=== PATIENT | male | born 1960 | race Caucasian/White ===

== ENCOUNTER → 2020-09-15 16:36 | Outpatient (BNVA) | payer OTHER, SELFPAY | PROVIDERS: Family Provider Nurse Practitioner Family; Visit Provider Nurse Practitioner Family | DX: J06.9 Acute upper respiratory infection, unspecified (principal); Z20.822 Contact with and (suspected) exposure to COVID-19 | CPT/HCPCS: 87635 ==

== ENCOUNTER 2022-07-08 10:57 | Emergency (ER) | payer BC, SELFPAY ==
--- NOTE | 2022-07-08 11:00 | ED_ITS ---
HPI - Skin/Abscess/Foreign Bdy General: Chief complaint: Skin/Abscess/Foreign Body Stated complaint: cyst on back Time Seen by Provider: 07/08/22 10:59 History of Present Illness: Mr. Posey is a 61-year-old gentleman with history of recurrent abscesses including history of MRSA presenting to the emergency department for concern for back abscess. He notes worsening symptoms for approximately 1 week. Now moderate to severe in intensity pain. No radiation or significant signs of systemic illness. No other specific changes in health, exacerbating, or alleviating factors identified. Onset (ago): week(s) Location: back Severity: moderate Pain Consistency: constant Relieving factors: none Exacerbating factors: palpation and movement Context: other Associated symptoms: Reports no associated symptoms Review of Systems General: Reports: 10 or more systems reviewed and unremarkable except in HPI and below PFSH ED PFSH: Medical History Diabetes mellitus Physical Exam Const: COMMON NORMALS: alert GENERAL APPEARANCE: cooperative and well developed HENMT: COMMON NORMALS: normocephalic and atraumatic HEAD & SCALP: normocephalic and atraumatic Eye: COMMON NORMALS: conjunctivae normal CONJUNCTIVA: Yes conjunctivae normal SCLERA: sclerae normal Neck/C-Spine: COMMON NORMALS: supple GENERAL: Yes trachea midline Resp: COMMON NORMALS: normal respiratory effort EFFORT & INSPECTION: Yes able to speak in complete sentences Cardio: COMMON NORMALS: regular rate and regular rhythm RATE: regular rate RHYTHM: regular rhythm Back/Pelvis: OTHER: Back has 2 areas concerning for fluid collection/abscess. The superior medial one is approximately 6 cm in diameter of induration and erythema, central area of raised obvious fluid collection with palpable fluctuance approximately 3 cm across. Multiple areas of superficial purulence observed. The second one is lateral and inferior, fluctuance and tenderness to palpation with mild erythema, approximately 3 x 4 cm. Extremity: GENERAL: Yes normal exam except as noted and No edema Neuro: COMMON NORMALS: moves all extremities SENSORIUM/ORIENTATION: Yes alert and No Orientation impaired Psych: COMMON NORMALS: mental status grossly normal and Normal thought process present THOUGHT PROCESS: Normal thought process present Procedures Abscess I/D Site: back Side (if applicable): left Sedation/analgesia: none Local Anesthetic: lidocaine 1% and with epi Amount of anesthesia used (mL): 3 Technique: incised with #11 blade Amount of fluid expressed (mL): 10 Irrigation: Yes Packing used?: none Course Vital Signs: Vital signs: Vital Signs Temperature 98.0 F 07/08/22 11:01 Pulse Rate 78 07/08/22 11:01 Respiratory Rate 18 07/08/22 12:00 Blood Pressure 139/77 07/08/22 11:01 Pulse Oximetry 98 07/08/22 12:00 Oxygen Delivery Me thod Room Air 07/08/22 11:01 MDM - Skin/Abscess/Foreign Bdy Medicial Decision Making 61-year-old gentleman with history of recurrent skin abscesses presenting for concern over abscesses and back pain. Patient is nontoxic in appearance. Two lesions concerning for abscess/infected cyst identified in the back as noted above. He does report a history of MRSA and surgical removal of one of the cyst though has still had recurrence. Given clinical history and appearance we will proceed with incisional drainage. [id number] ultrasound identifies drainable fluid collections, medial superior abscess has more internal debris and localized tissue edema. Incision and drainage performed with culture obtained. No complications. Moderate septations in both lesions with more thick older appearing drainage from the inferior lateral lesion. Patient will be placed on Bactrim giving history of MRSA. Most likely etiology of patient's symptoms is recurrent abscesses. The results of ED evaluation were discussed with the patient including prescriptions and/or symptomatic cares (if applicable) including appropriate and responsible use, followup plan, and return precautions. The patient verbalized understanding and felt safe for discharge. Medical Records I reviewed the patient's medical records. Lab Data I reviewed the patient's lab results. Discharge Plan Discharge Patient Disposition: Home Clinical Impression: Abscess of skin or subcutaneous tissue Condition: Stable Prescriptions: New oxycodone 5 mg tablet 5 mg PO Q4H PRN (Reason: pain) Qty: 6 0RF Bactrim DS 800-160 mg tablet 1 tab PO BID 10 Days Qty: 20 0RF Discharge Orders: Discharge ED (Routine); Ordered 07/08/22 Ordered By: Ranjan Cheney Referrals: Cecilia Fiore [Referring] - Discharge Diet: Usual diet Discharge Activity: Limit activity as instructed Patient Instructions: Sulfamethoxazole/Trimethoprim (By mouth) (Bactrim, Bactrim DS,..., Abscess Incision and Drainage (DC), Opioid Safety Activity Restrictions/Additional Instructions: Thank you for visiting the emergency department. You were seen and evaluated for recurrent abscess on the back. This was drained with incision and drainage. You will be treated with antibiotics. Keep the area clean and dry. I will message case management for follow-up with dermatology however if you do not hear from them by Tuesday I would recommend follow-up with your primary care provider as well. I will prescribe oxycodone, use this cautiously as discussed. You may use [id number] medications such as acetaminophen and ibuprofen for pain however please do not exceed the daily recommended dosage as listed on the packaging and please keep in mind that many namebrand medications contain the same active ingredients. Please avoid these medications if previously instructed to do so by another physician due to other underlying medical condition. Return to the emergency department for signs of worsening infection or anything else that you are concerned about and feel needs emergency department evaluation. Coding Level of Care Code ED Supervisor [employer] Department for [facility]
[2022-07-08 11:01] VITALS: BP 139/77; PULSE 78; RESP 15; TEMP 36.7; O2SAT 98; BMI 41.1
[2022-07-08 11:19] VITALS: RESP 18; O2SAT 98
[2022-07-08] MEDS: oxyCODONE-APAP 5-325 mg Tablet 1 TAB PO (11:19)
[2022-07-08] MEDS: lidocaine-epi 1% 20 mL INJ INJECTION (11:24)
[2022-07-08 12:00] VITALS: RESP 18; O2SAT 98
--- NOTE | 2022-07-08 12:03 | DCPLANNER ---
performing arts road manager had message to refer patient to dermatology. performing arts road manager informed ER physician and patient that special education case manager is unable to refer to dermatology, patient will have to see his primary care physician, and have his primary care physician refer patient to dermatology.
== END 2022-07-08 12:02 | disposition home or self-care (01) ==
PROVIDERS: Emergency Provider Emergency Medicine; PCP Family Medicine
DX: L02.212 Cutaneous abscess of back [any part, except buttock and flank] (principal); E11.9 Type 2 diabetes mellitus without complications
CPT/HCPCS: 10061; 87070; 87075; 87205; 99283